=== PATIENT | male | born 1980 | race African-American/Black ===

== ENCOUNTER 2016-07-01 12:09 | Inpatient (IN) | payer BC, OTHER ==
[~2016-07-01] VITALS: Ht 180.3 cm; Wt 152.4 kg
--- NOTE | ~2016-07-01 | EKG ---
[address] [place] [address] ELECTROCARDIOGRAM REPORT Name: LETICIA ACEVEDO Room #: 203-P ADM IN M.R.#: [id number] Admission: 07/01/16 Attend Phys: Gordon Irizarry Discharge: Date of : 84 Report #: [id number] THIS REPORT FOR: //name// [facility] ED Test Date: 2016-07-01 Test Time: 12:59:00 Pat Name: LETICIA ACEVEDO Department: Room: 203 Gender: M Early Childhood Specialist: MZOOK : 1980 Requested By: Mahsa Perez Order Number: [id number] MD: Emanuel Keller Measurements Intervals [place] Rate: 89 P: 62 [place]: 142 QRS: 65 QRSD: 120 T: 72 QT: 397 QTc: 484 Interpretive Statements Sinus rhythm Probable left atrial enlargement IVCD, consider atypical RBBB Baseline wander in lead(s) II,aVF,V3,V5,V6 No previous ECG available for comparison Electronically Signed On 07-01-2016 16:52:54 WELLNESS NURSE RN by Emanuel Keller [email or web address] <ELECTRONICALLY SIGNED> By: Emanuel Keller MD 07/01/16 [id number] [id number] Emanuel Keller MD /EPI
[2016-07-01 12:10] VITALS: BP 241/178
[2016-07-01 12:46] LABS: ABSOLUTE NEUTROPHILS 5.8 thou/uL (1.4-8.2); BASOPHILS 1.4 % (0.0-2.0); EOSINOPHILS 0.9 % (0.0-3.0); HEMATOCRIT 51.5 % (42.0-52.0); HEMOGLOBIN 17.2 gm/dL (14.0-18.0); LYMPHOCYTES 37.1 % (24.0-44.0); MCH 27.7 pg (26.0-34.0); MCHC 33.4 % (28.0-37.0); MONOCYTES 7.6 % (1.0-8.0); PLATELET COUNT 284 thou/uL (150-400); RBC 6.21 mil/uL (4.50-6.00); WBC 10.9 thou/uL (4.0-11.0)
[2016-07-01 12:47] LABS: MANUAL DIFF NO
[2016-07-01 12:55] LABS: ANION GAP 8 mmol/L (7-16); BUN 17 mg/dL (7-18); CALCIUM 9.1 mg/dL (8.5-10.1); CHLORIDE 105 mmol/L (98-107); CO2 30 mmol/L (21-32); CREATININE 1.2 mg/dL (0.6-1.3); GLUCOSE 121 mg/dL (70-99); SODIUM 143 mmol/L (136-145)
[2016-07-01 13:05] LABS: ALBUMIN 3.8 g/dL (3.4-5.0); ALKALINE PHOSPHATASE 100 U/L (46-116); SGOT 10 U/L (15-37); SGPT 45 U/L (30-65); TOTAL BILIRUBIN 0.4 mg/dL (<0.1-1.0); TROPONIN-I < 0.04 ng/mL (<0.04-0.07)
[2016-07-01] MEDS ORDERED: AMLODIPINE BESY10 MG PO (13:14)
[2016-07-01] MEDS ORDERED: DIOVAN320 MG PO (13:14)
[2016-07-01] MEDS ORDERED: TRIAMTERENE-HC1 EAC3 PO (13:14)
[2016-07-01 14:34] VITALS: BP 169/101
[2016-07-01 14:45] VITALS: BP 180/117
[2016-07-01 14:57] LABS: CHOLESTEROL 234 mg/dL (<200); HDL CHOLESTEROL 65 mg/dL (>40); LDL CHOLESTEROL 149 mg/dL (<100); TC:HDL 3.6 Ratio (Not establshd); TRIGLYCERIDE 101 mg/dL (<150); VLDL 20 mg/dL (<40)
[2016-07-01 16:52] VITALS: BP 156/99
[2016-07-01 20:15] VITALS: BP 194/125
[2016-07-02 00:04] VITALS: BP 180/120
[2016-07-02 01:50] LABS: CALCIUM 9.1 mg/dL (8.5-10.1); CREATININE 1.1 mg/dL (0.6-1.3); POTASSIUM 3.9 mmol/L (3.5-5.1)
[2016-07-02 01:54] LABS: ALBUMIN 3.6 g/dL (3.4-5.0); PHOSPHORUS 4.2 mg/dL (2.5-4.9)
[2016-07-02 04:36] VITALS: BP 188/115
[2016-07-02 08:20] VITALS: BP 146/91
[2016-07-02] MEDS ORDERED: AMLODIPINE BESY10 MG PO (09:41)
[2016-07-02] MEDS ORDERED: LIPITOR 20 MG T20 M1 PO (09:42)
[2016-07-02] MEDS ORDERED: DIOVAN320 MG PO (09:42)
[2016-07-02 11:20] VITALS: BP 135/112
[2016-07-02 12:02] VITALS: BP 146/91
== END 2016-07-02 13:15 | disposition home or self-care (01) | DRG 305 ==
LOC: ER 12:09 → 2N 13:58 → EROBS 13:58 → 2N 14:35
PROVIDERS: Hospitalist; Nurse Practitioner Family
DX: I16.9 Hypertensive crisis, unspecified (principal); Z68.42 Body mass index [BMI] 45.0-49.9, adult; E66.9 Obesity, unspecified; I10 Essential (primary) hypertension; F17.210 Nicotine dependence, cigarettes, uncomplicated; Z91.14 Patient's other noncompliance with medication regimen
CPT/HCPCS: 10081